=== PATIENT | female | born 2000 | race Caucasian/White ===

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

== ENCOUNTER 2024-07-23 17:31 | Emergency (ER) | payer OTHER ==
[~2024-07-23] VITALS: Ht 157.5 cm; Wt 54.4 kg
[~2024-07-23 17:31] MED LIST changes: +Depo-Prove150 MG/11 IM; +Zofran4 MG PO
[2024-07-23] MEDS ORDERED: Ondansetron HCl 2 MG / ML 2ML Vial IV ONE ×2 (18:30→18:55)
[2024-07-23] MEDS ORDERED: NS 1,000 ML IV SCH (18:30)
[2024-07-23 19:02] LABS: Hematocrit 40.9 % (33.0-51.0); Hemoglobin 14.3 g/dL (11.5-16.0); Mean Corpuscular Volume 89 fL (80-100); Mean Platelet Volume 10.1 fL (9.1-12.4); Platelet Count 288 K/mm3 (150-400); RDW Coefficient Variation 13.1 % (11.7-14.2); RDW Standard Deviation 42.5 fL (35.1-46.3); Red Blood Cell Count 4.61 M/mm3 (3.80-5.20); White Blood Cell Count 7.95 K/mm3 (4.00-11.30)
[2024-07-23 19:30] LABS: Albumin, Blood 4.4 g/dL (3.4-5.0); Bilirubin, Total 0.6 mg/dL (0.1-1.0); Bun/Creatinine Ratio 12.2 (12.0-20.0); Calcium, Blood 10.4 mg/dL (8.5-10.1); Creatinine, Blood 0.66 mg/dL (0.40-1.00); Globulin, Blood 4.4 g/dL (2.2-4.0); Magnesium, Blood 2.1 mg/dL (1.6-2.4); Potassium, Blood 2.8 mmol/L (3.5-5.5); Total Protein, Blood 8.8 g/dL (6.4-8.2)
[2024-07-23 19:33] LABS: BASOPHILS PERCENT MAN 0 % (0-2); EOSINOPHILS PERCENT MAN 0 % (0-6); LYMPHOCYTES % ATYPICAL MANUAL 2 % (0-0); LYMPHOCYTES ABSOLUTE MAN 1.74 K/mm3 (0.84-5.20); LYMPHOCYTES PERCENT MAN 20 % (21-46); MONOCYTES ABSOLUTE MAN 0.87 K/mm3 (0.16-1.47); MONOCYTES PERCENT MAN 11 % (4-13); NEUTROPHILS ABSOLUTE MAN 5.32 K/mm3 (1.96-9.15); SEG NEUTROPHILS PERCENT MAN 67 % (41-73); TOTAL CELLS COUNTED 100
[2024-07-23 19:47] LABS: Influenza B, PCR NEGATIVE (NEGATIVE); Resp Syncytial Virus, PCR NEGATIVE (NEGATIVE); SARS-Cov-2 (COVID-19) PCR, MMC NEGATIVE (NEGATIVE)
[2024-07-23 19:48] LABS: Influenza A, PCR POSITIVE (NEGATIVE)
[2024-07-23] MEDS ORDERED: Potassium Chloride 20 MEQ TabCR PO ONE (20:05)
[2024-07-23] MEDS ORDERED: Ketorolac Tromethamine 15mg Vial IV ONE (20:05)
[2024-07-23] MEDS ORDERED: Potassium Chloride 20 MEQ in NS 90 ML IV ONE (20:05)
[2024-07-23] MEDS ORDERED: Potassium Chl 20MEQ/Water100ML 100 ML IV ONE (20:05)
[2024-07-23 21:27] LABS: Source, Urine Clean Catch
[2024-07-23 21:36] LABS: Bilirubin, Urine Neg (Neg); Blood, Urine 2+ (Neg); Glucose Qualitative, Urine Neg (Neg); Ketones, Urine 4+ (Neg); Leukocyte Esterase, Urine Neg (Neg); Nitrite, Urine Neg (Neg); Protein, Urine 2+ (Neg); Specific Gravity, Urine 1.025 (1.003-1.022); Urobilinogen, Urine NORM (Normal)
[2024-07-23 21:48] LABS: Appearance, Urine Clear (Clear); Color, Urine Yellow (P-Yellow)
[2024-07-23 21:49] LABS: Bacteria Many /hpf; Squamous Epithelial Cells Mod /hpf (Few)
[2024-07-23 21:50] LABS: Mucus Mod (0-Heavy)
[2024-07-23 23:33] LABS: Chloride (POC) 109 mmol/L (98-108); Creatinine (POC) 0.6 mg/dL (0.6-1.0); Glucose (ISTAT POC) 85 mg/dL (70-99); Hemoglobin (POC) 11.9 g/dL (12.0-16.0); Potassium (POC) 3.5 mmol/L (3.5-5.5); Sodium (POC) 140 mmol/L (135-148); Total CO2 (POC) 16 mmol/L (21-32)
[2024-07-23] MEDS ORDERED: ONDA4 PO (23:43)
[2024-07-23] MEDS ORDERED: RX Prepack 2 Tabs Ondansetron ODT 4MG UD ONE (23:45)
[2024-07-24] VITALS: BP 123/73
== END 2024-07-24 00:19 | disposition home or self-care (01) ==
LOC: ER 17:31
PROVIDERS: Emergency Medicine; Student in an Organized Health Care Education/Training Program
DX: J11.1 Influenza due to unidentified influenza virus with other respiratory manifestations (principal); E87.6 Hypokalemia
CPT/HCPCS: 0241U; 71046; 80047; 80053; 81001; 81025; 83690; 83735; 85014; 85025; 93005; 93010; 96361; 96365; 96366; 96375; 99284-25; A9270; J1885; J2405; J3480; J7030